=== PATIENT | female | born 1965 | race Caucasian/White ===

== ENCOUNTER 2021-06-24 08:33 | Day surgery (SDC) | payer BC ==
[2021-06-22 11:45] VITALS: BMI 25.7
[2021-06-24] MEDS ORDERED: SODIUM CHLORIDE 0.9% P/F 10 ML VIAL IJ ONE (09:37)
[2021-06-24] MEDS ORDERED: BUPIVACAINE HCL/PF 0.5% (5 MG/ML) 30 ML VIAL IJ ONE (09:37)
[2021-06-24] MEDS ORDERED: MIDAZOLAM HCL 2 MG/2 ML SINGLE DOSE VIAL ONE ×2 (09:37→09:55)
[2021-06-24] MEDS ORDERED: BUPIVACAINE HCL 50 ML ONE (09:54)
[2021-06-24] MEDS ORDERED: SUCCINYLCHOLINE CHLORIDE 200 MG/10 ML SYRINGE ONE (09:55)
[2021-06-24] MEDS ORDERED: PROPOFOL 20 ML ONE ×4 (09:55)
[2021-06-24] MEDS ORDERED: PHENYLEPHRINE HCL 10 MG/1 ML SINGLE DOSE VIAL ONE (10:11)
[2021-06-24] MEDS ORDERED: ePHEDrine SULFATE 50 MG/1 ML AMPULE ONE (10:11)
[2021-06-24] MEDS ORDERED: oxyCODONE HCL 5 MG TABLET PO PRN ×2 (11:28)
[2021-06-24] MEDS ORDERED: ONDANSETRON 4 MG/2 ML VIAL IVPUSH PRN (11:28)
[2021-06-24] MEDS ORDERED: PROMETHAZINE HCL 25 MG/1 ML VIAL IVPB PRN (11:28)
[2021-06-24 16:10] VITALS: BP 123/51; PULSE 72; TEMP 97.9
== END 2021-06-24 16:10 | disposition home or self-care (01) ==
LOC: FASU 08:33
PROVIDERS: ATTEND Orthopaedic Surgery
PROC: 0SBC4ZZ Excision of Right Knee Joint, Percutaneous Endoscopic Approach (ICD-10-PCS; 2021-06-24)
PROC: 0SBC4ZZ Excision of Right Knee Joint, Percutaneous Endoscopic Approach (ICD-10-PCS; 2021-06-24)
PROC: 0QHG34Z Insertion of Internal Fixation Device into Right Tibia, Percutaneous Approach (ICD-10-PCS; principal; 2021-06-24 09:30)
DX: S82.141A Displaced bicondylar fracture of right tibia, initial encounter for closed fracture (principal); X58.XXXA Exposure to other specified factors, initial encounter; Y93.9 Activity, unspecified; Y92.9 Unspecified place or not applicable; S83.241A Other tear of medial meniscus, current injury, right knee, initial encounter; S83.281A Other tear of lateral meniscus, current injury, right knee, initial encounter; S83.8X1A Sprain of other specified parts of right knee, initial encounter; M65.861 Other synovitis and tenosynovitis, right lower leg
CPT/HCPCS: 73560-TC-RT-FY; 82962; 94760